=== PATIENT | male | born 1965 | race Caucasian/White ===

== ENCOUNTER 2016-10-21 06:27 | Day surgery (SDC) | payer BC, SELFPAY ==
[~2016-10-21] VITALS: Ht 188 cm; Wt 147.5 kg
== END 2016-10-21 09:47 | disposition home or self-care (01) ==
LOC: RAD.S 06:27 → EDSTATUS 08:00 → RAD.S 08:00
PROC: B516YZZ Fluoroscopy of Right Subclavian Vein using Other Contrast (ICD-10-PCS; principal; 2016-10-21)
DX: M79.89 Other specified soft tissue disorders (principal); I10 Essential (primary) hypertension; E78.5 Hyperlipidemia, unspecified; Z79.899 Other long term (current) drug therapy